=== PATIENT | female | born 1960 | race Caucasian/White ===

== ENCOUNTER 2016-09-16 00:23 | Emergency (ER) | payer OTHER ==
[~2016-09-16] VITALS: Ht 154.9 cm; Wt 90.7 kg
[~2016-09-16 00:23] MED LIST: ASPIRIN ADULT L81 MG PO; ASPIRIN ENTERIC81 M1 PO; ASPIRIN81 M1 PO; B12,B-12,B 12500 MC1 PO; CIPRO500 MG PO; CIPROFLOXACIN500 MG PO; CYCLOBENZAPRINE10 MG PO; FLAGYL500 MG PO; FLOMAX0.4 MG PO; GABAPENTIN300 MG PO; KEFLEX500 MG PO; LEVOFLOXACIN500 MG PO; LOPRESSOR25 MG PO; Lopressor25 MG PO; MACROBID100 M1 PO; MEDROL DOSEPAK4 MG PO; MELOXICAM7.5 MG PO; NEURONTIN300 MG PO; NEURONTIN600 MG PO; NORCO 10-325 T1 EACH PO; NORCO 325 MG-101 TAB PO; NORCO 325 MG-7.1 TAB PO; OMEPRAZOLE MAGN20 MG PO; OXYCONTIN10 M1 PO; PERCOCET 325 MG1 TA2 PO; PHENERGAN25 M1 PO; PRAVASTATIN SOD20 MG PO; PREDNISONE10 M1 PO; PRILOSEC20 M1 PO; PRILOSEC20 M2 PO; PROTONIX40 MG PO; PYRIDIUM200 M1 PO; RESTORIL15 MG PO; TRAMADOL HCL50 MG PO; VICO10300 PO; WELLBUTRIN XL150 MG PO; ZESTRIL,PRINIVI10 MG PO; ZESTRIL2.5 MG PO; ZOFRAN ODT4 MG SL; ZOFRAN4 MG PO
[2016-09-16 00:27] VITALS: BP 135/75
[2016-09-16 01:02] LABS: BASO % 0.2 % (0.0-1.0); EOS # 0.2 10*3/uL (0.0-0.4); EOS % 1.5 % (1.0-4.0); HEMATOCRIT 39.7 % (37.0-47.0); HEMOGLOBIN 13.2 g/dl (12.0-16.0); IG # 0.1 10*3/uL (0.0-0.1); LYMPH # 3.5 10*3/uL (1.3-4.4); LYMPH % 26.9 % (27.0-41.0); MEAN CELL VOLUME 86.7 fl (81.0-99.0); MEAN CORPUSCULAR HGB 28.8 pg (27.0-31.0); MEAN CORPUSCULAR HGB CONC 33.2 g/dl (33.0-37.0); MEAN PLATELET VOLUME 9.5 fl (9.6-12.3); MONO # 0.8 10*3/uL (0.1-1.0); MONO % 6.2 % (3.0-9.0); NEUT # 8.4 10*3/uL (2.3-7.9); NEUT % 64.8 % (47.0-73.0); PLATELET COUNT AUTOMATED 249 10*3/uL (130-400); RED BLOOD COUNT 4.58 10*6/uL (4.10-5.10); RED CELL DISTRI WIDTH 13.7 % (0-14.5); WHITE BLOOD COUNT 12.9 10*3/uL (4.8-10.8)
[2016-09-16 01:21] LABS: ALBUMIN 3.8 gm/dl (3.1-4.5); ALKALINE PHOSPHATASE 94 U/L (45-117); BILIRUBIN, TOTAL 0.2 mg/dl (0.2-1.0); BUN 18 mg/dl (7-24); CARBON DIOXIDE 25 mmol/L (21-32); CHLORIDE 107 mmol/L (98-107); EST GLOM FILT AFRICAN AMERICAN > 60 ml/min; GLUCOSE 186 mg/dL (65-99); POTASSIUM 3.9 mmol/L (3.5-5.1); SGOT/AST 30 IU/L (3-35); SGPT/ALT 41 U/L (12-78); SODIUM 142 mmol/L (136-145); TOTAL PROTEIN 7.4 gm/dL (6.4-8.2)
[2016-09-16 01:45] LABS: BILIRUBIN NEGATIVE (NEGATIVE); BLOOD 3+ (NEGATIVE); CLARITY SL CLOUDY (CLEAR); COLOR YELLOW (YELLOW); GLUCOSE NEGATIVE (NEGATIVE); KETONE NEGATIVE (NEGATIVE); LEUKO ESTERASE 1+ (NEGATIVE); NITRITE POSITIVE (NEGATIVE); PROTEIN TRACE (NEGATIVE); SPECIFIC GRAVITY >= 1.030 (1.005-1.030); UROBILINOGEN 0.2 E.U./dl (0.2-1.0)
[2016-09-16 01:54] LABS: BACTERIA 4+; RBC 16-20 rbc/hpf (0-2); URINE REFLEX COMMENT YES (NO); WBC 41-50 wbc/hpf (0-5)
[2016-09-16] MEDS ORDERED: PERCOCET 325 MG1 TA2 PO (02:30)
[2016-09-16] MEDS ORDERED: ZOFRAN ODT4 MG SL (02:30)
[2016-09-16] MEDS ORDERED: AMINOPHYLLIN200 MG PO (02:30)
== END 2016-09-16 03:16 | disposition home or self-care (01) ==
LOC: ED 00:23
PROVIDERS: Physician Assistant
DX: N23 Unspecified renal colic (principal); N20.1 Calculus of ureter; N39.0 Urinary tract infection, site not specified; F17.200 Nicotine dependence, unspecified, uncomplicated; Z87.442 Personal history of urinary calculi; Z79.82 Long term (current) use of aspirin; Z79.899 Other long term (current) drug therapy

== ENCOUNTER 2016-09-27 20:09 | Emergency (ER) | payer OTHER ==
[~2016-09-27] VITALS: Ht 154.9 cm; Wt 99.8 kg
[~2016-09-27 20:09] MED LIST changes: +AMINOPHYLLIN200 MG PO
[2016-09-27 21:13] LABS: BASO % 0.2 % (0.0-1.0); EOS # 0.2 10*3/uL (0.0-0.4); EOS % 2.1 % (1.0-4.0); HEMATOCRIT 38.2 % (37.0-47.0); HEMOGLOBIN 12.5 g/dl (12.0-16.0); LYMPH # 2.6 10*3/uL (1.3-4.4); LYMPH % 26.6 % (27.0-41.0); MEAN CELL VOLUME 88.2 fl (81.0-99.0); MEAN CORPUSCULAR HGB 28.9 pg (27.0-31.0); MEAN CORPUSCULAR HGB CONC 32.7 g/dl (33.0-37.0); MEAN PLATELET VOLUME 9.2 fl (9.6-12.3); MONO # 0.5 10*3/uL (0.1-1.0); MONO % 5.3 % (3.0-9.0); NEUT # 6.3 10*3/uL (2.3-7.9); NEUT % 65.4 % (47.0-73.0); PLATELET COUNT AUTOMATED 261 10*3/uL (130-400); RED BLOOD COUNT 4.33 10*6/uL (4.10-5.10); RED CELL DISTRI WIDTH 13.5 % (0-14.5); WHITE BLOOD COUNT 9.6 10*3/uL (4.8-10.8)
[2016-09-27 21:31] LABS: ALBUMIN 3.6 gm/dl (3.1-4.5); ALKALINE PHOSPHATASE 98 U/L (45-117); BILIRUBIN, TOTAL 0.2 mg/dl (0.2-1.0); BUN 14 mg/dl (7-24); CARBON DIOXIDE 28 mmol/L (21-32); CHLORIDE 105 mmol/L (98-107); EST GLOM FILT AFRICAN AMERICAN > 60 ml/min; GLUCOSE 161 mg/dL (65-99); SGOT/AST 26 IU/L (3-35); SGPT/ALT 39 U/L (12-78); SODIUM 142 mmol/L (136-145); TOTAL PROTEIN 7.2 gm/dL (6.4-8.2)
[2016-09-27 22:47] LABS: BILIRUBIN NEGATIVE (NEGATIVE); BLOOD 3+ (NEGATIVE); CLARITY SL CLOUDY (CLEAR); COLOR YELLOW (YELLOW); GLUCOSE NEGATIVE (NEGATIVE); KETONE NEGATIVE (NEGATIVE); LEUKO ESTERASE TRACE (NEGATIVE); NITRITE POSITIVE (NEGATIVE); PROTEIN NEGATIVE (NEGATIVE); SPECIFIC GRAVITY 1.015 (1.005-1.030); UROBILINOGEN 0.2 E.U./dl (0.2-1.0)
[2016-09-27 22:48] VITALS: BP 146/78
[2016-09-27 22:58] LABS: BACTERIA 2+
[2016-09-27 22:59] LABS: URINE REFLEX COMMENT YES (NO)
[2016-09-27] MEDS ORDERED: BACTRIM DS 8001 TA1 PO (23:46)
== END 2016-09-27 23:49 | disposition home or self-care (01) ==
LOC: ED 20:09
PROVIDERS: Physician Assistant
DX: N20.1 Calculus of ureter (principal); N39.0 Urinary tract infection, site not specified; Z87.442 Personal history of urinary calculi; F17.200 Nicotine dependence, unspecified, uncomplicated; Z79.82 Long term (current) use of aspirin

== ENCOUNTER → 2016-12-10 | Outpatient (CLI) | payer OTHER ==
[~2016-12-10] MED LIST changes: +BACTRIM DS 8001 TA1 PO
== END | disposition home or self-care (01) ==
LOC: RAD 11:00
DX: M85.88 Other specified disorders of bone density and structure, other site (principal)

== ENCOUNTER → 2017-01-10 | Outpatient (CLI) | payer OTHER | END | disposition home or self-care (01) | LOC: RAD 12:19 | DX: M17.0 Bilateral primary osteoarthritis of knee (principal); M19.071 Primary osteoarthritis, right ankle and foot; M77.31 Calcaneal spur, right foot ==

== ENCOUNTER → 2017-03-24 | Outpatient (CLI) | payer OTHER | END | disposition home or self-care (01) | LOC: MRI 07:54 | DX: M19.071 Primary osteoarthritis, right ankle and foot (principal); M25.474 Effusion, right foot; M62.9 Disorder of muscle, unspecified ==

== ENCOUNTER → 2017-04-04 | Outpatient (CLI) | payer OTHER | END | disposition home or self-care (01) | LOC: MRI 10:00 | DX: M72.2 Plantar fascial fibromatosis (principal); M77.31 Calcaneal spur, right foot; M62.9 Disorder of muscle, unspecified ==

== ENCOUNTER 2017-06-16 15:51 | Inpatient (IN) | payer OTHER ==
[~2017-06-16] VITALS: Ht 152.4 cm; Wt 112.7 kg
--- NOTE | ~2017-06-16 | ST ---
[place], [place] EXERCISE STRESS TEST REPORT NAME: YECENIA SWIFT UNIT #: [id number] ROOM: 506 DOCTOR: KIRIT CARL MD BIRTHDATE: [birth year] DOS: 06/17/2017 LEXISCAN PORTION OF THE LEXISCAN CARDIOLITE Baseline cardiogram, normal sinus rhythm with poor R-wave progression in the anterior leads with 0.4 mg Lexiscan, duration of 10 seconds. With Lexiscan, no new EKG changes. No chest discomfort. Blood pressure and heart rate response was normal. Nuclear images will be reported separately. KIRIT CARL MD CM:STRESS:EXERCISE STRESS TEST REPORT [id number] KIRIT CARL MD
--- NOTE | ~2017-06-16 | CON ---
[place], [place] REPORT OF CONSULTATION NAME: YECENIA SWIFT UNIT #: [id number] ROOM: 506 DOCTOR: MANDY ZELAYA MD BIRTHDATE: [birth year] DOS: 06/16/2017 I am seeing this patient on behalf of Dr. [place]. HISTORY OF PRESENT ILLNESS: This is a 57-year-old -[place] woman with a history of morbid obesity, GERD, hyperlipidemia, hypertension, major depressive disorder, osteoporosis and anxiety disorder, who also has coronary artery disease. She has had 4 stents deployed in all, last one was I think in 2013. She had a stress test done last summer for similar symptoms that she has now and it showed no ischemia. She came to the Emergency Department after having seen her family doctor because of anterior chest pressure and pain with exertion that started about 2 weeks ago. There was some associated discomfort in the arm as well. This occurs with exertion and when she stops the feeling goes away. It has not changed much in the last couple of weeks. She has never had this feeling at rest when she is not doing anything. She has not had any swelling in the legs or orthopnea. She does snore at night. No dizziness or loss of consciousness. She does have palpitation occasionally described as a fluttering sensation. SOCIAL HISTORY: She smokes half a pack per day. She lives at home. HOME MEDICATIONS: Include aspirin, gabapentin, hydrocodone/acetaminophen, Wellbutrin, metoprolol 50 b.i.d., omeprazole 20 mg daily, and Zofran 4 mg p.r.n. for nausea. She is not on a statin drug or ELLIE inhibitor. PHYSICAL EXAMINATION: GENERAL: The patient is morbidly obese. Temperature is normal. There is no thyromegaly or finger clubbing. VITAL SIGNS: Pulse is 80 regular, blood pressure 146/69. Highest blood pressure was 157/81. NECK: Normal JVP. There is no carotid bruit. HEART: There is no cardiomegaly. No murmurs are present. Heart sounds are rather distant. EXTREMITIES: Good pedal pulses and 1+ edema in the pretibial areas. RESPIRATORY: Lungs are clear to auscultation with mildly diminished breath sounds. ABDOMEN: Rather large, but supple. DIAGNOSTIC STUDIES: Two ECGs have shown normal sinus rhythm and a normal pattern. Electrolytes are normal, creatinine function is also normal. Troponin I level was less than 0.15. IMPRESSION: This is a patient with known coronary artery disease and multiple stents, has exertional angina of 2 weeks' duration. She tells me that she had similar symptoms last year when the stress test was negative; however, her story is fairly convincing for myocardial ischemia. I think it is a good idea to perform a Lexiscan Cardiolite study on this patient and I will inform Dr. Colorado [place], [place] REPORT OF CONSULTATION NAME: YECENIA SWIFT UNIT #: [id number] ROOM: [facility] DOCTOR: MANDY ZELAYA MD BIRTHDATE: [birth year] regarding this recommendation. Blood pressure is not adequately controlled. I would recommend adding an ELLIE inhibitor and add a statin drug as well. I thank you on behalf of Dr. [place] for this consult. MANDY ZELAYA MD CM:CONSTR:REPORT OF CONSULTATION 30 06/16/17 [id number]
[2017-06-16 15:58] VITALS: BP 148/80
[2017-06-16] MEDS ORDERED: VICODIN 5-3001 EACH PO (15:58)
[2017-06-16 16:11] LABS: BASO % 0.1 % (0.0-1.0); EOS # 0.2 10*3/uL (0.0-0.4); EOS % 2.2 % (1.0-4.0); HEMATOCRIT 41.9 % (37.0-47.0); HEMOGLOBIN 13.5 g/dl (12.0-16.0); LYMPH # 2.7 10*3/uL (1.3-4.4); LYMPH % 27.3 % (27.0-41.0); MEAN CELL VOLUME 88.4 fl (81.0-99.0); MEAN CORPUSCULAR HGB 28.5 pg (27.0-31.0); MEAN CORPUSCULAR HGB CONC 32.2 g/dl (33.0-37.0); MEAN PLATELET VOLUME 9.4 fl (9.6-12.3); MONO # 0.6 10*3/uL (0.1-1.0); MONO % 5.6 % (3.0-9.0); NEUT # 6.4 10*3/uL (2.3-7.9); NEUT % 64.5 % (47.0-73.0); PLATELET COUNT AUTOMATED 273 10*3/uL (130-400); RED BLOOD COUNT 4.74 10*6/uL (4.10-5.10); RED CELL DISTRI WIDTH 14.1 % (0-14.5)
[2017-06-16 16:18] VITALS: BP 157/81
[2017-06-16 16:21] LABS: ACT PARTIAL THROMBO TIME 23.9 SECONDS (20.8-31.5)
[2017-06-16 16:27] LABS: ALBUMIN 3.9 gm/dl (3.1-4.5); ALKALINE PHOSPHATASE 90 U/L (45-117); BUN 14 mg/dl (7-24); CHLORIDE 108 mmol/L (98-107); CREATININE 1.02 mg/dL (0.55-1.02); POTASSIUM 3.9 mmol/L (3.5-5.1); SGOT/AST 68 IU/L (3-35); SGPT/ALT 70 U/L (12-78); SODIUM 141 mmol/L (136-145); TOTAL PROTEIN 7.7 gm/dL (6.4-8.2)
[2017-06-16 16:29] LABS: TROPONIN I < 0.015 ng/ml (<0.045)
[2017-06-16 17:00] VITALS: BP 146/72
[2017-06-16 17:41] VITALS: BP 143/69
[2017-06-16 18:31] VITALS: BP 146/69
[2017-06-16] MEDS ORDERED: VITAMIN D31000 UNI1 PO (19:39)
[2017-06-16] MEDS ORDERED: LIVALO2 M1 PO (19:40)
[2017-06-16] MEDS ORDERED: ALENDRONATE SOD10 M1 PO ×2 (19:40→23:55)
[2017-06-16] MEDS ORDERED: CALCIUM500 M1 PO (19:41)
[2017-06-16 20:00] VITALS: BP 140/72
[2017-06-16] MEDS ORDERED: NORCO 5-325 TA1 EACH PO (23:52)
[2017-06-17] VITALS: BP 140/96
[2017-06-17 04:00] VITALS: BP 148/79
[2017-06-17 06:59] LABS: BASO % 0.1 % (0.0-1.0); EOS # 0.1 10*3/uL (0.0-0.4); EOS % 1.5 % (1.0-4.0); HEMOGLOBIN 13.6 g/dl (12.0-16.0); LYMPH # 2.4 10*3/uL (1.3-4.4); LYMPH % 25.3 % (27.0-41.0); MEAN CELL VOLUME 87.2 fl (81.0-99.0); MEAN CORPUSCULAR HGB 28.9 pg (27.0-31.0); MEAN CORPUSCULAR HGB CONC 33.2 g/dl (33.0-37.0); MEAN PLATELET VOLUME 9.3 fl (9.6-12.3); MONO # 0.4 10*3/uL (0.1-1.0); MONO % 4.7 % (3.0-9.0); NEUT # 6.3 10*3/uL (2.3-7.9); PLATELET COUNT AUTOMATED 255 10*3/uL (130-400); WHITE BLOOD COUNT 9.3 10*3/uL (4.8-10.8)
[2017-06-17 07:34] LABS: ALBUMIN 4.1 gm/dl (3.1-4.5); ALKALINE PHOSPHATASE 79 U/L (45-117); BUN 10 mg/dl (7-24); CHLORIDE 105 mmol/L (98-107); FREE T4 1.14 ng/dl (0.76-1.46); HDL CHOLESTEROL 31 mg/dl (40-60); POTASSIUM 3.9 mmol/L (3.5-5.1); SODIUM 139 mmol/L (136-145)
[2017-06-17 07:40] LABS: CHOLESTEROL 231 mg/dL (<200); CREATININE 0.82 mg/dL (0.55-1.02); LDL CHOLESTEROL 142 mg/dL (9-159); PHOSPHOROUS 2.4 mg/dL (2.5-4.9); SGOT/AST 55 IU/L (3-35); SGPT/ALT 61 U/L (12-78); TOTAL PROTEIN 7.4 gm/dL (6.4-8.2); TRIGLYCERIDES 288 mg/dl (<150); VLDL CHOLESTEROL 58 mg/dL (6-40)
[2017-06-17 08:00] VITALS: BP 132/62
[2017-06-17 08:13] LABS: VITAMIN D, 25-HYDROXY 24.9 ng/mL (30-100)
[2017-06-17 12:00] VITALS: BP 122/60
[2017-06-17] MEDS ORDERED: PHENERGAN25 M3 PO (14:44)
== END 2017-06-17 17:41 | disposition home or self-care (01) | DRG 445 ==
LOC: ED 15:51 → EDHOLD 17:21 → 5E 17:21
PROVIDERS: Student in an Organized Health Care Education/Training Program
PROC: 4A02XM4 Measurement of Cardiac Total Activity, External Approach (ICD-10-PCS; principal; 2017-06-17)
DX: K80.50 Calculus of bile duct without cholangitis or cholecystitis without obstruction (principal); F33.9 Major depressive disorder, recurrent, unspecified; E11.65 Type 2 diabetes mellitus with hyperglycemia; Z68.42 Body mass index [BMI] 45.0-49.9, adult; E66.01 Morbid (severe) obesity due to excess calories; R07.9 Chest pain, unspecified; I25.118 Atherosclerotic heart disease of native coronary artery with other forms of angina pectoris; E78.5 Hyperlipidemia, unspecified; I10 Essential (primary) hypertension; R74.0 Nonspecific elevation of levels of transaminase and lactic acid dehydrogenase [LDH]; K21.9 Gastro-esophageal reflux disease without esophagitis; G89.29 Other chronic pain; M81.0 Age-related osteoporosis without current pathological fracture; F41.1 Generalized anxiety disorder; G43.909 Migraine, unspecified, not intractable, without status migrainosus; M79.7 Fibromyalgia; F41.9 Anxiety disorder, unspecified; I25.2 Old myocardial infarction; Z95.5 Presence of coronary angioplasty implant and graft; Z82.49 Family history of ischemic heart disease and other diseases of the circulatory system; Z79.899 Other long term (current) drug therapy; Z79.82 Long term (current) use of aspirin; Z72.0 Tobacco use; Z71.6 Tobacco abuse counseling

== ENCOUNTER → 2017-06-28 | Outpatient (CLI) | payer OTHER ==
[~2017-06-28] MED LIST changes: +ALENDRONATE SOD10 M1 PO; +CALCIUM500 M1 PO; +LIVALO2 M1 PO; +NORCO 5-325 TA1 EACH PO; +PHENERGAN25 M3 PO; +VICODIN 5-3001 EACH PO; +VITAMIN D31000 UNI1 PO
== END | disposition home or self-care (01) ==
LOC: US 07:30
DX: K76.0 Fatty (change of) liver, not elsewhere classified (principal); R19.7 Diarrhea, unspecified

== ENCOUNTER → 2017-06-29 | Outpatient (CLI) | payer OTHER | END | disposition home or self-care (01) | LOC: NM 01:37 | DX: K76.89 Other specified diseases of liver (principal); R19.7 Diarrhea, unspecified; R10.811 Right upper quadrant abdominal tenderness; R11.0 Nausea ==

== ENCOUNTER → 2017-07-18 | Outpatient (CLI) | payer OTHER | END | disposition home or self-care (01) | LOC: RAD 14:46 | DX: R06.02 Shortness of breath (principal) ==

== ENCOUNTER → 2017-12-27 | Outpatient (CLI) | payer OTHER | END | disposition home or self-care (01) | LOC: RAD 18:35 | DX: M43.17 Spondylolisthesis, lumbosacral region (principal); Z91.81 History of falling ==

== ENCOUNTER → 2018-01-13 | Outpatient (CLI) | payer OTHER | END | disposition home or self-care (01) | LOC: MRI 08:50 | DX: M66.871 Spontaneous rupture of other tendons, right ankle and foot (principal); M19.071 Primary osteoarthritis, right ankle and foot; M72.2 Plantar fascial fibromatosis ==

== ENCOUNTER → 2018-07-03 | Outpatient (CLI) | payer OTHER | END | disposition home or self-care (01) | LOC: ORTHO 02:15 | DX: M17.12 Unilateral primary osteoarthritis, left knee (principal); M87.88 Other osteonecrosis, other site ==

== ENCOUNTER → 2018-07-29 | Outpatient (CLI) | payer OTHER | END | disposition home or self-care (01) | LOC: RAD 18:03 | DX: M19.071 Primary osteoarthritis, right ankle and foot (principal); M25.774 Osteophyte, right foot; M85.471 Solitary bone cyst, right ankle and foot ==

== ENCOUNTER → 2018-08-21 | Outpatient (CLI) | payer MEDICARE | END | disposition home or self-care (01) | LOC: ORTHO 02:38 | DX: M17.11 Unilateral primary osteoarthritis, right knee (principal) ==

== ENCOUNTER → 2019-01-02 | Outpatient (CLI) | payer MEDICARE | END | disposition home or self-care (01) | LOC: CT 09:54 | DX: N20.0 Calculus of kidney (principal); M54.9 Dorsalgia, unspecified; Z90.710 Acquired absence of both cervix and uterus ==

== ENCOUNTER 2019-02-25 10:21 | Emergency (ER) | payer OTHER ==
[~2019-02-25] VITALS: Ht 152.4 cm; Wt 108.9 kg
[2019-02-25 10:24] VITALS: BP 172/88
[2019-02-25 10:38] LABS: BASO % 0.2 % (0.0-1.0); EOS # 0.2 10*3/uL (0.0-0.4); EOS % 1.9 % (1.0-4.0); HEMATOCRIT 38.4 % (37.0-47.0); HEMOGLOBIN 12.5 g/dl (12.0-16.0); LYMPH # 1.9 10*3/uL (1.3-4.4); LYMPH % 19.2 % (27.0-41.0); MEAN CELL VOLUME 91.6 fl (81.0-99.0); MEAN CORPUSCULAR HGB 29.8 pg (27.0-31.0); MEAN CORPUSCULAR HGB CONC 32.6 g/dl (33.0-37.0); MEAN PLATELET VOLUME 9.2 fl (9.6-12.3); MONO # 0.5 10*3/uL (0.1-1.0); MONO % 5.6 % (3.0-9.0); NEUT % 72.7 % (47.0-73.0); PLATELET COUNT AUTOMATED 242 10*3/uL (130-400); RED BLOOD COUNT 4.19 10*6/uL (4.10-5.10); RED CELL DISTRI WIDTH 14.3 % (0-14.5); WHITE BLOOD COUNT 9.6 10*3/uL (4.8-10.8)
[2019-02-25 10:50] LABS: BILIRUBIN NEGATIVE (NEGATIVE); BLOOD 3+ (NEGATIVE); CLARITY CLOUDY (CLEAR); COLOR YELLOW (YELLOW); GLUCOSE TRACE (NEGATIVE); KETONE TRACE (NEGATIVE); LEUKO ESTERASE NEGATIVE (NEGATIVE); NITRITE NEGATIVE (NEGATIVE); PH 5.5 (5.0-9.0); SPECIFIC GRAVITY >= 1.030 (1.005-1.030); UROBILINOGEN 0.2 E.U./dl (0.2-1.0)
[2019-02-25 10:53] LABS: ALBUMIN 3.8 gm/dl (3.1-4.5); CREATININE 1.21 mg/dL (0.55-1.02); POTASSIUM 3.9 mmol/L (3.5-5.1); TOTAL PROTEIN 7.3 gm/dL (6.4-8.2)
[2019-02-25 11:01] LABS: EPITHELIAL CELLS 20-30; RBC TNTC rbc/hpf (0-2)
[2019-02-25 11:03] LABS: BACTERIA 2+; CALCIUM OXALATE CRYSTALS 1+; MUCOUS 2+
[2019-02-25] MEDS ORDERED: ZOFRAN4 MG PO (12:38)
[2019-02-25] MEDS ORDERED: FLOMAX0.4 MG PO (12:38)
[2019-02-25] MEDS ORDERED: NORCO 5-325 TA1 EACH PO (12:38)
== END 2019-02-25 12:48 | disposition home or self-care (01) ==
LOC: ED 10:21
PROVIDERS: Nurse Practitioner Family
DX: N13.2 Hydronephrosis with renal and ureteral calculous obstruction (principal); F17.200 Nicotine dependence, unspecified, uncomplicated; Z87.442 Personal history of urinary calculi; Z79.899 Other long term (current) drug therapy; Z79.82 Long term (current) use of aspirin; Z90.710 Acquired absence of both cervix and uterus; Z90.49 Acquired absence of other specified parts of digestive tract

== ENCOUNTER 2019-04-11 14:49 | Emergency (ER) | payer OTHER ==
[~2019-04-11] VITALS: Ht 152.4 cm; Wt 108.0 kg
[2019-04-11 15:39] LABS: BILIRUBIN NEGATIVE (NEGATIVE); BLOOD NEGATIVE (NEGATIVE); CLARITY SL CLOUDY (CLEAR); COLOR YELLOW (YELLOW); GLUCOSE NEGATIVE (NEGATIVE); KETONE NEGATIVE (NEGATIVE); LEUKO ESTERASE NEGATIVE (NEGATIVE); NITRITE NEGATIVE (NEGATIVE); UROBILINOGEN 0.2 E.U./dl (0.2-1.0)
[2019-04-11 15:46] LABS: BACTERIA TRACE
[2019-04-11 15:52] LABS: BASO % 0.1 % (0.0-1.0); EOS # 0.1 10*3/uL (0.0-0.4); EOS % 1.7 % (1.0-4.0); HEMATOCRIT 40.3 % (37.0-47.0); HEMOGLOBIN 12.8 g/dl (12.0-16.0); LYMPH # 2.6 10*3/uL (1.3-4.4); LYMPH % 31.2 % (27.0-41.0); MEAN CELL VOLUME 91.2 fl (81.0-99.0); MEAN CORPUSCULAR HGB CONC 31.8 g/dl (33.0-37.0); MEAN PLATELET VOLUME 9.4 fl (9.6-12.3); MONO # 0.5 10*3/uL (0.1-1.0); MONO % 5.8 % (3.0-9.0); NEUT # 5.1 10*3/uL (2.3-7.9); NEUT % 60.8 % (47.0-73.0); PLATELET COUNT AUTOMATED 260 10*3/uL (130-400); RED BLOOD COUNT 4.42 10*6/uL (4.10-5.10); RED CELL DISTRI WIDTH 13.7 % (0-14.5); WHITE BLOOD COUNT 8.4 10*3/uL (4.8-10.8)
[2019-04-11 15:55] LABS: URINE AMPHETAMINES < 1000 (1000ng/ml); URINE BARBITURATES < 200 (200ng/ml); URINE BENZODIAZEPINES < 200 (200ng/ml); URINE CANNABINOIDS (THC) < 50 (50ng/ml); URINE COCAINE < 300 (300ng/ml); URINE METHADONE < 300 (300ng/ml); URINE OPIATES > 300 (300ng/ml)
[2019-04-11 15:58] LABS: URINE PHENCYCLIDINE < 25 (25ng/ml)
[2019-04-11 16:07] LABS: ALBUMIN 3.8 gm/dl (3.1-4.5); ALKALINE PHOSPHATASE 94 U/L (45-117); BUN 12 mg/dl (7-24); CHLORIDE 103 mmol/L (98-107); CREATININE 1.18 mg/dL (0.55-1.02); POTASSIUM 3.8 mmol/L (3.5-5.1); SGOT/AST 20 IU/L (3-35); SGPT/ALT 25 U/L (12-78); SODIUM 136 mmol/L (136-145); TOTAL PROTEIN 7.8 gm/dL (6.4-8.2)
[2019-04-11 16:12] LABS: ACETAMINOPHEN (TYLENOL) < 5.0 ug/ml (10-30); ETHYL ALCOHOL < 3.0 mg/dl (<3)
[2019-04-11 17:10] VITALS: BP 123/59
== END 2019-04-11 19:03 | disposition home or self-care (01) ==
LOC: ED 14:49
PROVIDERS: Physician Assistant
DX: T46.6X1A Poisoning by antihyperlipidemic and antiarteriosclerotic drugs, accidental (unintentional), initial encounter (principal); R11.0 Nausea; M79.18 Myalgia, other site; F17.200 Nicotine dependence, unspecified, uncomplicated; Z79.899 Other long term (current) drug therapy; Z79.82 Long term (current) use of aspirin; Z87.442 Personal history of urinary calculi; Y92.098 Other place in other non-institutional residence as the place of occurrence of the external cause

== ENCOUNTER → 2019-08-16 | Outpatient (CLI) | payer MEDICARE | END | disposition home or self-care (01) | LOC: RAD 12:06 | DX: M19.071 Primary osteoarthritis, right ankle and foot (principal); M77.31 Calcaneal spur, right foot; M77.51 Other enthesopathy of right foot and ankle ==

== ENCOUNTER → 2019-12-19 | Outpatient (CLI) | payer MEDICARE | END | disposition home or self-care (01) | LOC: LAB 08:49 | DX: Z01.818 Encounter for other preprocedural examination (principal); I25.10 Atherosclerotic heart disease of native coronary artery without angina pectoris; M17.12 Unilateral primary osteoarthritis, left knee ==

== ENCOUNTER 2020-01-18 08:33 | Emergency (ER) | payer MEDICARE ==
[~2020-01-18] VITALS: Ht 152.4 cm; Wt 104.3 kg
[2020-01-18 09:51] VITALS: BP 168/81
[2020-01-18 11:09] LABS: BILIRUBIN NEGATIVE (NEGATIVE); BLOOD 3+ (NEGATIVE); CLARITY CLOUDY (CLEAR); COLOR YELLOW (YELLOW); GLUCOSE NEGATIVE (NEGATIVE); KETONE NEGATIVE (NEGATIVE)
[2020-01-18 11:10] LABS: LEUKO ESTERASE NEGATIVE (NEGATIVE); NITRITE NEGATIVE (NEGATIVE); UROBILINOGEN 0.2 E.U./dl (0.2-1.0)
[2020-01-18 11:12] LABS: BACTERIA 1+; RBC TNTC rbc/hpf (0-2)
== END 2020-01-18 14:10 | disposition home or self-care (01) ==
LOC: ED 08:33
PROVIDERS: Internal Medicine
DX: S39.012A Strain of muscle, fascia and tendon of lower back, initial encounter (principal); M19.90 Unspecified osteoarthritis, unspecified site; I10 Essential (primary) hypertension; I25.2 Old myocardial infarction; G43.909 Migraine, unspecified, not intractable, without status migrainosus; M79.7 Fibromyalgia; F17.200 Nicotine dependence, unspecified, uncomplicated; Z79.899 Other long term (current) drug therapy; Z79.82 Long term (current) use of aspirin; X58.XXXA Exposure to other specified factors, initial encounter; Y93.89 Activity, other specified; Y92.89 Other specified places as the place of occurrence of the external cause; Y99.8 Other external cause status

== ENCOUNTER → 2021-07-14 | Outpatient (CLI) | payer MEDICARE | END | disposition home or self-care (01) | LOC: RAD 12:10 | PROVIDERS: ATTEND Anesthesiology | DX: M50.30 Other cervical disc degeneration, unspecified cervical region (principal); M25.512 Pain in left shoulder ==

== ENCOUNTER 2021-08-05 13:00 | Observation (INO) | payer OTHER ==
[~2021-08-05] VITALS: Ht 152.4 cm; Wt 108.7 kg
[2021-08-05 13:16] VITALS: BP 139/82
[2021-08-05 14:57] LABS: BASO % 0.3 % (0.0-1.0); EOS # 0.1 10*3/uL (0.0-0.4); EOS % 1.1 % (1.0-4.0); HEMATOCRIT 37.8 % (37.0-47.0); LYMPH # 2.4 10*3/uL (1.3-4.4); LYMPH % 21.3 % (27.0-41.0); MEAN CELL VOLUME 80.3 fl (81.0-99.0); MEAN CORPUSCULAR HGB 25.1 pg (27.0-31.0); MEAN CORPUSCULAR HGB CONC 31.2 g/dl (33.0-37.0); MEAN PLATELET VOLUME 9.1 fl (9.6-12.3); MONO # 0.5 10*3/uL (0.1-1.0); NEUT # 8.4 10*3/uL (2.3-7.9); PLATELET COUNT AUTOMATED 294 10*3/uL (130-400); RED BLOOD COUNT 4.71 10*6/uL (4.10-5.10); RED CELL DISTRI WIDTH 15.4 % (0-14.5); WHITE BLOOD COUNT 11.5 10*3/uL (4.8-10.8)
[2021-08-05 15:14] LABS: ACT PARTIAL THROMBO TIME 25.8 SECONDS (20.0-32.1)
[2021-08-05 15:15] LABS: ALKALINE PHOSPHATASE 94 U/L (45-117); BUN 14 mg/dl (7-24); CHLORIDE 106 mmol/L (98-107); CREATININE 1.09 mg/dL (0.55-1.02); POTASSIUM 3.6 mmol/L (3.5-5.1); SGOT/AST 28 IU/L (3-35); SGPT/ALT 33 U/L (12-78); SODIUM 136 mmol/L (136-145); TOTAL PROTEIN 7.9 gm/dL (6.4-8.2)
[2021-08-05 20:31] VITALS: BP 108/55
[2021-08-05 20:36] VITALS: BP 107/53
[2021-08-05] MEDS ORDERED: ACID REDUCER20 MG PO (21:48)
[2021-08-05] MEDS ORDERED: FLOMAX0.4 MG PO (21:51)
[2021-08-05] MEDS ORDERED: BRILINTA60 MG PO (21:52)
[2021-08-05] MEDS ORDERED: LASIX40 MG PO (21:53)
[2021-08-05] MEDS ORDERED: COREG25 MG PO (21:54)
[2021-08-05] MEDS ORDERED: ZOCOR20 MG PO (21:55)
[2021-08-05] MEDS ORDERED: METFORMIN HYDR500 MG PO (21:55)
[2021-08-05] MEDS ORDERED: KLOR-CON 1010 ME1 PO (22:00)
[2021-08-05] MEDS ORDERED: ROXICODONE5 MG PO (22:08)
[2021-08-06] VITALS: BP 106/56
[2021-08-06 06:36] LABS: BASO % 0.2 % (0.0-1.0); EOS # 0.2 10*3/uL (0.0-0.4); EOS % 1.8 % (1.0-4.0); HEMATOCRIT 36.1 % (37.0-47.0); LYMPH # 2.3 10*3/uL (1.3-4.4); LYMPH % 26.5 % (27.0-41.0); MEAN CELL VOLUME 81.7 fl (81.0-99.0); MEAN CORPUSCULAR HGB 25.1 pg (27.0-31.0); MEAN CORPUSCULAR HGB CONC 30.7 g/dl (33.0-37.0); MEAN PLATELET VOLUME 8.9 fl (9.6-12.3); MONO # 0.5 10*3/uL (0.1-1.0); NEUT # 5.7 10*3/uL (2.3-7.9); NEUT % 65.2 % (47.0-73.0); PLATELET COUNT AUTOMATED 254 10*3/uL (130-400); RED BLOOD COUNT 4.42 10*6/uL (4.10-5.10); RED CELL DISTRI WIDTH 15.7 % (0-14.5); WHITE BLOOD COUNT 8.8 10*3/uL (4.8-10.8)
[2021-08-06 06:55] LABS: BUN 12 mg/dl (7-24); CHLORIDE 108 mmol/L (98-107); CREATININE 0.94 mg/dL (0.55-1.02); POTASSIUM 3.7 mmol/L (3.5-5.1); SGOT/AST 26 IU/L (3-35); SGPT/ALT 33 U/L (12-78); SODIUM 139 mmol/L (136-145)
[2021-08-06 06:56] LABS: ALKALINE PHOSPHATASE 87 U/L (45-117); TOTAL PROTEIN 7.2 gm/dL (6.4-8.2)
[2021-08-06 08:00] VITALS: BP 126/65
[2021-08-06 12:00] VITALS: BP 125/68
== END 2021-08-06 17:18 | disposition home or self-care (01) ==
LOC: ED 13:00 → 5E 17:57 → EDHOLD 17:57 → 5E 19:23
PROVIDERS: Emergency Medicine; Internal Medicine; ADMIT Internal Medicine; ATTEND Internal Medicine
DX: R07.89 Other chest pain (principal); I25.10 Atherosclerotic heart disease of native coronary artery without angina pectoris; F41.8 Other specified anxiety disorders; G89.29 Other chronic pain; K21.9 Gastro-esophageal reflux disease without esophagitis; E78.5 Hyperlipidemia, unspecified; I10 Essential (primary) hypertension; F32.9 Major depressive disorder, single episode, unspecified; E11.9 Type 2 diabetes mellitus without complications; M81.0 Age-related osteoporosis without current pathological fracture; E66.01 Morbid (severe) obesity due to excess calories

== ENCOUNTER → 2021-12-17 | Outpatient (CLI) | payer OTHER ==
[~2021-12-17] MED LIST changes: +ACID REDUCER20 MG PO; +BRILINTA60 MG PO; +COREG25 MG PO; +KLOR-CON 1010 ME1 PO; +LASIX40 MG PO; +METFORMIN HYDR500 MG PO; +ROXICODONE5 MG PO; +ZOCOR20 MG PO
== END | disposition home or self-care (01) ==
LOC: MAMMO 10:00
PROVIDERS: ATTEND Family Medicine
DX: Z12.31 Encounter for screening mammogram for malignant neoplasm of breast (principal)

== ENCOUNTER → 2022-10-08 | Outpatient (CLI) | payer OTHER | END | disposition home or self-care (01) | LOC: RAD 13:05 | PROVIDERS: ATTEND Family Medicine | DX: M85.9 Disorder of bone density and structure, unspecified (principal); M81.0 Age-related osteoporosis without current pathological fracture ==

== ENCOUNTER → 2024-04-05 | Outpatient (CLI) | payer OTHER ==
[2024-04-05 10:12] LABS: BASO % 0.1 % (0.0-1.0); EOS # 0.1 10*3/uL (0.0-0.4); EOS % 1.3 % (1.0-4.0); HEMATOCRIT 40.9 % (37.0-47.0); MEAN CORPUSCULAR HGB 26.6 pg (27.0-31.0); MEAN CORPUSCULAR HGB CONC 31.3 g/dl (33.0-37.0); MONO # 0.5 10*3/uL (0.1-1.0); MONO % 7.4 % (3.0-9.0); NEUT # 4.1 10*3/uL (2.3-7.9); PLATELET COUNT AUTOMATED 235 10*3/uL (130-400); RED BLOOD COUNT 4.81 10*6/uL (4.10-5.10); RED CELL DISTRI WIDTH 16.1 % (0-14.5)
[2024-04-05 10:24] LABS: ACT PARTIAL THROMBO TIME 26.5 SECONDS (20.0-32.1)
[2024-04-05 10:30] LABS: ALKALINE PHOSPHATASE 93 U/L (46-116); BUN 12 mg/dl (9-23); CHLORIDE 104 mmol/L (98-107); POTASSIUM 3.9 mmol/L (3.4-5.1); SGPT/ALT 12 U/L (5-49); TOTAL PROTEIN 7.4 gm/dL (6.0-8.0)
[2024-04-05 17:02] LABS: BILIRUBIN Negative (Negative); BLOOD Negative (Negative); CLARITY Clear (Clear); COLOR Yellow (Yellow); GLUCOSE 3+ (Negative); KETONE Negative (Negative); LEUKO ESTERASE Negative (Negative); NITRITE Negative (Negative); PH 6.5 (4.5-8.0); SPECIFIC GRAVITY >= 1.030 (1.001-1.030)
[2024-04-05 17:49] LABS: BACTERIA 1+; YEAST 3+
== END | disposition home or self-care (01) ==
LOC: LAB 09:12
PROVIDERS: ATTEND Orthopaedic Surgery
DX: Z01.818 Encounter for other preprocedural examination (principal); I10 Essential (primary) hypertension; K21.9 Gastro-esophageal reflux disease without esophagitis; E78.5 Hyperlipidemia, unspecified; E11.9 Type 2 diabetes mellitus without complications; I87.2 Venous insufficiency (chronic) (peripheral); Z79.899 Other long term (current) drug therapy

== ENCOUNTER → 2024-05-23 | Outpatient (CLI) | payer OTHER | END | disposition home or self-care (01) | LOC: RAD 10:06 | PROVIDERS: ATTEND Family Medicine | DX: R07.81 Pleurodynia (principal) ==

== ENCOUNTER 2024-07-25 10:21 | Emergency (ER) | payer OTHER ==
[~2024-07-25] VITALS: Wt 90.7 kg
[2024-07-25 10:49] VITALS: BP 154/77
[2024-07-25 12:35] LABS: BILIRUBIN Negative (Negative); BLOOD Negative (Negative); CLARITY Clear (Clear); COLOR Yellow (Yellow); GLUCOSE 3+ (Negative); KETONE Trace (Negative); LEUKO ESTERASE Trace (Negative); NITRITE Negative (Negative); PH 6.5 (4.5-8.0); SPECIFIC GRAVITY >= 1.030 (1.001-1.030)
[2024-07-25 12:36] LABS: BASO % 0.3 % (0.0-1.0); EOS # 0.1 10*3/uL (0.0-0.4); EOS % 2.1 % (1.0-4.0); HEMATOCRIT 41.9 % (37.0-47.0); MEAN CELL VOLUME 87.1 fl (81.0-99.0); MEAN CORPUSCULAR HGB 27.4 pg (27.0-31.0); MEAN CORPUSCULAR HGB CONC 31.5 g/dl (33.0-37.0); MEAN PLATELET VOLUME 9.1 fl (9.6-12.3); MONO # 0.6 10*3/uL (0.1-1.0); MONO % 8.6 % (3.0-9.0); NEUT # 3.9 10*3/uL (2.3-7.9); NEUT % 58.5 % (47.0-73.0); PLATELET COUNT AUTOMATED 212 10*3/uL (130-400); RED BLOOD COUNT 4.81 10*6/uL (4.10-5.10); RED CELL DISTRI WIDTH 16.4 % (0-14.5); WHITE BLOOD COUNT 6.6 10*3/uL (4.8-10.8)
[2024-07-25 12:56] LABS: BACTERIA 2+; WBC 21-30 wbc/hpf (0-5); YEAST 2+
[2024-07-25 12:57] LABS: BUN 10 mg/dl (9-23); CHLORIDE 103 mmol/L (98-107); POTASSIUM 4.2 mmol/L (3.4-5.1)
[2024-07-25] MEDS ORDERED: CIPRO500 MG PO (13:15)
[2024-07-25] MEDS ORDERED: Ciprofloxacin Hydrochloride 500 MG TAB PO ONE (13:35)
== END 2024-07-25 13:23 | disposition home or self-care (01) ==
LOC: ED 10:21
PROVIDERS: Nurse Practitioner Family
DX: S30.0XXA Contusion of lower back and pelvis, initial encounter (principal); N39.0 Urinary tract infection, site not specified; M79.7 Fibromyalgia; F32.A Depression, unspecified; I25.2 Old myocardial infarction; E83.41 Hypermagnesemia; D64.9 Anemia, unspecified; I25.10 Atherosclerotic heart disease of native coronary artery without angina pectoris; K21.9 Gastro-esophageal reflux disease without esophagitis; E78.5 Hyperlipidemia, unspecified; I10 Essential (primary) hypertension; Z87.442 Personal history of urinary calculi; E11.65 Type 2 diabetes mellitus with hyperglycemia; G43.909 Migraine, unspecified, not intractable, without status migrainosus; Z90.710 Acquired absence of both cervix and uterus; Z98.890 Other specified postprocedural states; Z72.0 Tobacco use; W19.XXXA Unspecified fall, initial encounter; Y93.89 Activity, other specified; Y92.89 Other specified places as the place of occurrence of the external cause; Y99.8 Other external cause status

== ENCOUNTER → 2024-07-31 | Outpatient (CLI) | payer OTHER, MEDICAID ==
[~2024-07-31] MED LIST changes: +GADOTERATE MEGLUMINE 10 MMOL/20 ML VIAL IV ONE
== END | disposition home or self-care (01) ==
LOC: MRI 09:07
PROVIDERS: ATTEND Anesthesiology
DX: M43.17 Spondylolisthesis, lumbosacral region (principal); M96.1 Postlaminectomy syndrome, not elsewhere classified; M51.27 Other intervertebral disc displacement, lumbosacral region; M48.07 Spinal stenosis, lumbosacral region

== ENCOUNTER 2024-12-16 10:44 | Emergency (ER) | payer OTHER, MEDICAID ==
[~2024-12-16] VITALS: Ht 152.4 cm; Wt 86.2 kg
[~2024-12-16 10:44] MED LIST changes: -GADOTERATE MEGLUMINE 10 MMOL/20 ML VIAL IV ONE
[2024-12-16 10:53] VITALS: BP 125/55
[2024-12-16] MEDS ORDERED: Ondansetron Hydrochloride 4 MG/2 ML VIAL IM ONE (11:05)
[2024-12-16 11:21] LABS: BASO # 0.0 10*3/uL (0.0-0.1); BASO % 0.2 % (0.0-1.0); EOS # 0.1 10*3/uL (0.0-0.4); EOS % 2.1 % (1.0-4.0); MEAN CELL VOLUME 88.9 fl (81.0-99.0); MEAN CORPUSCULAR HGB 28.5 pg (27.0-31.0); MEAN PLATELET VOLUME 8.9 fl (9.6-12.3); MONO # 0.5 10*3/uL (0.1-1.0); MONO % 8.0 % (3.0-9.0); NEUT # 3.6 10*3/uL (2.3-7.9); NEUT % 54.2 % (47.0-73.0); NUCLEATED RED BLOOD CELL 0.0 % (0.0-0.0); NUCLEATED RED BLOOD CELL 0.0 10*3/uL (0.0-0.0); PLATELET COUNT AUTOMATED 216 10*3/uL (130-400); RED CELL DISTRI WIDTH 14.6 % (0-14.5)
[2024-12-16] MEDS ORDERED: Ondansetron Hydrochloride 4 MG/2 ML VIAL IV ONE (11:45)
[2024-12-16 11:47] LABS: BUN 11 mg/dl (9-23); SGPT/ALT 7 U/L (5-49)
[2024-12-16] MEDS ORDERED: SODIUM CHLORIDE 0.9% 500 ML IV ONE (12:55)
[2024-12-16] MEDS ORDERED: IOHEXOL 300 MG/ML 100 ML VIAL IV ONE (12:55)
== END 2024-12-16 14:59 | disposition home or self-care (01) ==
LOC: ED 10:44
PROVIDERS: Nurse Practitioner Family
DX: S29.011A Strain of muscle and tendon of front wall of thorax, initial encounter (principal); K59.00 Constipation, unspecified; R06.02 Shortness of breath; Z79.899 Other long term (current) drug therapy; Z79.84 Long term (current) use of oral hypoglycemic drugs; Z79.82 Long term (current) use of aspirin; Z87.442 Personal history of urinary calculi; Z90.711 Acquired absence of uterus with remaining cervical stump; Z98.890 Other specified postprocedural states; Z87.891 Personal history of nicotine dependence; X50.9XXA Other and unspecified overexertion or strenuous movements or postures, initial encounter; Y93.89 Activity, other specified; Y92.89 Other specified places as the place of occurrence of the external cause; Y99.8 Other external cause status

== ENCOUNTER → 2025-01-11 | Outpatient (CLI) | payer OTHER, MEDICAID ==
[~2025-01-11] MED LIST changes: +SINCALIDE 1.72 MCG in SODIUM CHLORIDE 0.9% 50 ML IV STA; +SINCALIDE 5 MCG VIAL IV SCH; +Technetium Tc 99M Mebrofenin 1 KIT KIT IV SCH
== END | disposition home or self-care (01) ==
LOC: NM 00:36
PROVIDERS: ATTEND Nurse Practitioner Family
DX: R10.9 Unspecified abdominal pain (principal)

== ENCOUNTER → 2025-02-04 | Outpatient (CLI) | payer OTHER, MEDICAID ==
[~2025-02-04] MED LIST changes: -SINCALIDE 1.72 MCG in SODIUM CHLORIDE 0.9% 50 ML IV STA; -SINCALIDE 5 MCG VIAL IV SCH; -Technetium Tc 99M Mebrofenin 1 KIT KIT IV SCH
== END ==
LOC: RAD 08:30
PROVIDERS: ATTEND Nurse Practitioner Family
DX: Z12.2 Encounter for screening for malignant neoplasm of respiratory organs (principal); M81.0 Age-related osteoporosis without current pathological fracture; F17.210 Nicotine dependence, cigarettes, uncomplicated